=== PATIENT | female | born 1935 | race Asian ===

== ENCOUNTER → 2017-02-23 | Outpatient (CLI) | payer MEDICARE, OTHER ==
[~2017-02-23] VITALS: Ht 165.1 cm; Wt 57.0 kg
[~2017-02-23] MED LIST: ADV250 IH; APIX5TAB PO; BUME1TAB30 PO; CALC-879 PO; CITA10TA68 PO; DEXL30CA3 PO; DIGO125T PO; DOCU50LI12 PO; DSS100 PO; FURO40 PO; IPRA3AMP4 NEB; KDUR10 PO; LORA0.5T2 PO; LOSA50TA37 PO; METO50 PO; METO75TA PO; OS500 PO; SIMV-259 PO; TIOT185 IH; TRAM50TA4 PO; TRAV5DRO; TRAZ-144 PO
[2017-02-23 13:56] VITALS: BP 137/80
== END | disposition home or self-care (01) ==
LOC: SRCNTR 13:43
PROVIDERS: ATTEND Internal Medicine Clinical Cardiac Electrophysiology
DX: J44.9 Chronic obstructive pulmonary disease, unspecified (principal); K81.1 Chronic cholecystitis; I48.91 Unspecified atrial fibrillation; I11.0 Hypertensive heart disease with heart failure; I50.22 Chronic systolic (congestive) heart failure; Z95.810 Presence of automatic (implantable) cardiac defibrillator
CPT/HCPCS: G0463

== ENCOUNTER 2017-02-26 11:16 | Observation (INO) | payer MEDICARE, OTHER ==
[2017-02-26] VITALS (14 sets, daily range): BP systolic 150–176; BP diastolic 92–116
[~2017-02-26 11:16] MED LIST changes: +0.9% SODIUM CHLORIDE 10 ML VIAL IVP ONE; -BUME1TAB30 PO; -CALC-879 PO; -CITA10TA68 PO; -DEXL30CA3 PO; +EPHEDrine SULFATE 50 MG/ML VIAL IM ONE; -FURO40 PO; -IPRA3AMP4 NEB; -KDUR10 PO; +KETAMINE HCL 50 MG/ML 10 ML VIAL IVP ONE; +LIDOCAINE HCL/PF 2% 5 ML VIAL IM ONE; -LORA0.5T2 PO; -METO75TA PO; +MIDAZOLAM HCL 2 MG/2 ML VIAL IVP ONE; -OS500 PO; +PHENYLEPHRINE HCL 10 MG/ML VIAL IVP ONE; +PROPOFOL 1% 20 ML VIAL IVP ONE; -TIOT185 IH; -TRAM50TA4 PO; -TRAV5DRO
[2017-02-26] MEDS ORDERED: SODIUM CHLORIDE 0.9% 1,000 ML IV ONE ×3 (11:30→14:33)
[2017-02-26 12:12] LABS: BASOPHILS # (AUTO) 0.02 K/uL (0.00-0.20); BASOPHILS % (AUTO) 0.2 % (0.0-2.0); EOSINOPHILS # (AUTO) 0.12 K/uL (0.00-0.70); EOSINOPHILS % (AUTO) 1.48 % (1.0-6.0); HEMOGLOBIN 13.4 g/dL (12.0-16.0); LYMPHOCYTES # (AUTO) 1.3 K/uL (1.0-4.8); LYMPHOCYTES % (AUTO) 15.9 % (22.0-44.0); MEAN CORPUSCULAR HEMOGLOBIN 32.9 pg (26.0-34.0); MEAN CORPUSCULAR HGB CONC 32.6 G/dL (31.0-37.0); MEAN CORPUSCULAR VOLUME 101 fL (80-100); MONOCYTES # (AUTO) 0.9 K/uL (0.1-1.0); MONOCYTES % (AUTO) 10.8 % (2.0-9.0); NEUTROPHILS # (AUTO) 5.9 K/uL (1.8-7.7); NEUTROPHILS % (AUTO) 71.7 % (40.0-70.0); PLATELET COUNT (AUTO) 203 K/uL (150-450); RED BLOOD CELL COUNT(AUTO) 4.07 MIL/uL (4.00-5.20); RED CELL DISTRIBUTION WIDTH 14.5 % (11.5-14.5); WHITE BLOOD COUNT (AUTO) 8.3 K/uL (4.5-11.0)
[2017-02-26 12:24] LABS: CALCIUM, TOTAL 8.8 mg/dL (8.8-10.5); CREATININE 0.97 mg/dL (0.60-1.30); MAGNESIUM 2.1 mg/dL (1.80-2.40); POTASSIUM 4.7 mmol/L (3.5-5.1)
[2017-02-26 12:25] LABS: RBC MORPHOLOGY COMMENT ABNORMAL RBC MORPH
[2017-02-26 12:33] LABS: PROTHROMBIN TIME 10.5 SEC (9.4-11.6)
[2017-02-26] MEDS ORDERED: SODIUM CHLORIDE 0.9% 500 ML IV ONE (13:08)
[2017-02-26] MEDS ORDERED: IOHEXOL 300 MG/ML 50 ML VIAL ONE (14:40)
[2017-02-26] MEDS ORDERED: LIDOCAINE HCL/PF 1% 30 ML VIAL ONE ×2 (14:40→15:47)
[2017-02-26] MEDS ORDERED: SODIUM BICARBONATE 50 MEQ/50 ML VIAL ONE (14:40)
[2017-02-26] MEDS ORDERED: LIDOCAINE 1% 30 ML/SOD BICARB 8.4% 4 ML SQ ONE (16:15)
[2017-02-26] MEDS ORDERED: BUPIVACAINE LIPOSOME/PF 1.3%-13.3MG/ML SUSPENSION 20 ML VIAL INJ ONE (16:15)
[2017-02-26] MEDS ORDERED: BUPIVACAINE HCL/PF 0.25% 30 ML VIAL SQ ONE (16:15)
[2017-02-26] MEDS ORDERED: BUPIVACAINE LIPOSOME/PF 1.3%-13.3MG/ML SUSPENSION 10 ML VIAL INJ ONE (16:30)
[2017-02-26] MEDS ORDERED: TraZODone HCL 50 MG TABLET PO PRN (17:00)
[2017-02-26] MEDS ORDERED: 0.9% SODIUM CHLORIDE 10 ML SYRINGE IVP PRN (17:00)
[2017-02-26] MEDS ORDERED: ONDANSETRON HCL 4 MG/2 ML VIAL IVP PRN (17:00)
[2017-02-26] MEDS ORDERED: ACETAMINOPHEN 325 MG TABLET PO PRN (17:00)
[2017-02-26] MEDS ORDERED: METOPROLOL TARTRATE 25 MG TABLET PO ONE (20:00)
[2017-02-26] MEDS: HYDROCODONE/ACETAMINOPHEN 5-325 MG TABLET PO PRN (20:09)
[2017-02-26] MEDS ORDERED: SODIUM CHLORIDE 0.9% 250 ML IV ONE (21:51)
[2017-02-26] MEDS: CeFAZolin 1 GM/DEXTROSE 50 ML IV SCH (21:52)
[2017-02-27] VITALS: BP 150/92
[2017-02-27] MEDS: CeFAZolin 1 GM/DEXTROSE 50 ML IV SCH ×2 (03:11→09:10)
[2017-02-27 04:37] VITALS: BP 141/78
[2017-02-27 07:13] VITALS: BP 149/110
[2017-02-27] MEDS ORDERED: DIGOXIN 125 MCG TABLET PO SCH (09:00)
[2017-02-27] MEDS ORDERED: SIMVASTATIN 10 MG TABLET PO SCH (09:00)
[2017-02-27] MEDS ORDERED: LOSARTAN POTASSIUM 50 MG TABLET PO SCH (09:00)
[2017-02-27] MEDS ORDERED: METOPROLOL TARTRATE 50 MG TABLET PO SCH (09:00)
[2017-02-27] MEDS: HYDROCODONE/ACETAMINOPHEN 5-325 MG TABLET PO PRN (09:22)
[2017-02-27 11:24] VITALS: BP 113/62
[2017-02-27 15:49] VITALS: BP 104/72
[2017-02-27] MEDS ORDERED: CEPH250 PO (17:29)
[2017-03-02] MEDS ORDERED: TRAM50TA4 PO (10:38)
[2017-03-02] MEDS ORDERED: POTA99TA15 PO (10:38)
[2017-03-02] MEDS ORDERED: TIOT185 IH (10:38)
[2017-03-02] MEDS ORDERED: KDUR20 PO (10:41)
== END 2017-02-27 18:27 | disposition home or self-care (01) ==
LOC: 5N 11:16 → EDSTATUS 13:30 → 5S 17:05
PROVIDERS: ADMIT Internal Medicine Clinical Cardiac Electrophysiology; ATTEND Internal Medicine Clinical Cardiac Electrophysiology
DX: I11.0 Hypertensive heart disease with heart failure (principal); I50.22 Chronic systolic (congestive) heart failure; I48.2 Chronic atrial fibrillation; I42.9 Cardiomyopathy, unspecified; Z95.0 Presence of cardiac pacemaker
CPT/HCPCS: 33214; 36415; 71010; 71020; 76000; 80048; 83735; 85025; 85610; 85730; 87081; 88300; 93005; 96365; 96375; C1721; C1892; C1899; G0378 ×2; J0690; J2250; J2370; J2704; J3490 ×5; J7030; J7040; J7050; Q9967; C9290

== ENCOUNTER → 2017-03-02 | Outpatient (CLI) | payer MEDICARE, OTHER ==
[~2017-03-02] MED LIST changes: -0.9% SODIUM CHLORIDE 10 ML VIAL IVP ONE; +CEPH250 PO; -DOCU50LI12 PO; -EPHEDrine SULFATE 50 MG/ML VIAL IM ONE; +KDUR20 PO; -KETAMINE HCL 50 MG/ML 10 ML VIAL IVP ONE; -LIDOCAINE HCL/PF 2% 5 ML VIAL IM ONE; -MIDAZOLAM HCL 2 MG/2 ML VIAL IVP ONE; -PHENYLEPHRINE HCL 10 MG/ML VIAL IVP ONE; +POTA99TA15 PO; -PROPOFOL 1% 20 ML VIAL IVP ONE; +TIOT185 IH; +TRAM50TA4 PO
[2017-03-02 10:27] VITALS: BP 142/85
== END | disposition home or self-care (01) ==
LOC: SRCNTR 10:17
PROVIDERS: ATTEND Internal Medicine Clinical Cardiac Electrophysiology
DX: Z45.02 Encounter for adjustment and management of automatic implantable cardiac defibrillator (principal); I11.0 Hypertensive heart disease with heart failure; I50.9 Heart failure, unspecified; E78.5 Hyperlipidemia, unspecified; J44.9 Chronic obstructive pulmonary disease, unspecified; E78.00 Pure hypercholesterolemia, unspecified; J18.9 Pneumonia, unspecified organism
CPT/HCPCS: G0463

== ENCOUNTER 2017-03-03 12:32 | Emergency (ER) | payer MEDICARE, OTHER ==
[~2017-03-03] VITALS: Ht 165.1 cm; Wt 57.0 kg
[~2017-03-03 12:32] MED LIST changes: -POTA99TA15 PO
[2017-03-03 14:49] LABS: BASOPHILS % (AUTO) 0.4 % (0.0-2.0); EOSINOPHILS % (AUTO) 0 % (1.0-6.0); HEMATOCRIT 35.6 % (36-46); HEMOGLOBIN 12.3 g/dL (12.0-16.0); LYMPHOCYTES # (AUTO) 0.8 K/uL (1.0-4.8); LYMPHOCYTES % (AUTO) 5.7 % (22.0-44.0); MEAN CORPUSCULAR HEMOGLOBIN 33.4 pg (26.0-34.0); MEAN CORPUSCULAR HGB CONC 34.6 G/dL (31.0-37.0); MEAN CORPUSCULAR VOLUME 96 fL (80-100); MONOCYTES # (AUTO) 1.1 K/uL (0.1-1.0); MONOCYTES % (AUTO) 7.7 % (2.0-9.0); NEUTROPHILS # (AUTO) 12.3 K/uL (1.8-7.7); PLATELET COUNT (AUTO) 202 K/uL (150-450); RED BLOOD CELL COUNT(AUTO) 3.69 MIL/uL (4.00-5.20); RED CELL DISTRIBUTION WIDTH 14.4 % (11.5-14.5); WHITE BLOOD COUNT (AUTO) 14.2 K/uL (4.5-11.0)
[2017-03-03 14:55] LABS: POTASSIUM 4.7 mmol/L (3.5-5.1)
[2017-03-03 14:56] LABS: ALBUMIN 3.2 g/dL (3.4-5.0); BILIRUBIN,TOTAL 1.2 mg/dL (0.1-1.0); CALCIUM, TOTAL 8.7 mg/dL (8.8-10.5); CREATININE 1.05 mg/dL (0.60-1.30); TOTAL PROTEIN, SERUM 8.1 g/dL (6.4-8.2)
[2017-03-03 15:00] LABS: NEUTROPHILS % (AUTO) 86.2 % (40.0-70.0)
[2017-03-03 15:03] LABS: INR 1.1 (0.9-1.1); PROTHROMBIN TIME 11.5 SEC (9.4-11.6)
[2017-03-03] MEDS ORDERED: SODIUM CHLORIDE 0.9% 500 ML IV ONE (17:45)
[2017-03-03 17:50] VITALS: BP 132/95
[2017-03-03 17:58] LABS: APPEARANCE,URINE CLOUDY (CLEAR); GLUCOSE, URINE (UA) 100 mg/dL (NEGATIVE); KETONES,URINE NEGATIVE (NEGATIVE); OCCULT BLOOD,URINE LARGE (NEGATIVE); PH,URINE 5.5 (5.0-8.0); PROTEIN,URINE POS 1+ (NEGATIVE)
[2017-03-03 18:05] LABS: ADD UA MICROSCOPIC YES; LEUKOCYTE ESTERASE ,URINE MODERATE (NEGATIVE); RBC,URINE 51-100 /HPF (0-2); SQUAMOUS EPITHELIAL CELL,UR Few /LPF (None Seen); WBC,URINE 26-50 /HPF (0-5)
[2017-03-03] MEDS ORDERED: VANCOMYCIN HCL 1 GM/D5% WATER 200 ML IV ONE (18:30)
[2017-03-03] MEDS ORDERED: LEVOFLOXACIN 500 MG/D5% WATER 100 ML IV ONE (18:30)
== END 2017-03-03 21:27 | disposition home or self-care (01) ==
LOC: EMS 12:37
DX: N39.0 Urinary tract infection, site not specified (principal); E78.00 Pure hypercholesterolemia, unspecified; I11.0 Hypertensive heart disease with heart failure; I50.9 Heart failure, unspecified; J44.9 Chronic obstructive pulmonary disease, unspecified
CPT/HCPCS: 36415; 71010; 80053; 81001; 82271; 83690; 85025; 85610; 85730; 86850; 86900; 86901; 87077; 87086; 87186; 93005; 96361; 96374; 96375; 99285; J1956; J3370; J7040

== ENCOUNTER → 2017-03-09 | Outpatient (CLI) | payer MEDICARE, OTHER ==
[2017-03-09 11:34] VITALS: BP 114/57
== END | disposition home or self-care (01) ==
LOC: SRCNTR 11:04
PROVIDERS: ATTEND Internal Medicine Clinical Cardiac Electrophysiology
DX: Z45.02 Encounter for adjustment and management of automatic implantable cardiac defibrillator (principal); I11.0 Hypertensive heart disease with heart failure; I50.9 Heart failure, unspecified; E78.5 Hyperlipidemia, unspecified
CPT/HCPCS: G0463

== ENCOUNTER → 2017-03-30 | Outpatient (CLI) | payer MEDICARE, OTHER ==
[~2017-03-30] VITALS: Ht 152.4 cm; Wt 51.0 kg
[2017-03-30 10:27] VITALS: BP 102/61
== END | disposition home or self-care (01) ==
LOC: SRCNTR 10:21
PROVIDERS: ATTEND Internal Medicine Clinical Cardiac Electrophysiology
DX: Z45.02 Encounter for adjustment and management of automatic implantable cardiac defibrillator (principal); I11.0 Hypertensive heart disease with heart failure; I50.9 Heart failure, unspecified; E78.5 Hyperlipidemia, unspecified; J44.9 Chronic obstructive pulmonary disease, unspecified; E78.00 Pure hypercholesterolemia, unspecified; R42 Dizziness and giddiness; Z79.01 Long term (current) use of anticoagulants
CPT/HCPCS: G0463

== ENCOUNTER → 2017-06-01 | Outpatient (CLI) | payer MEDICARE, OTHER ==
[~2017-06-01] VITALS: Ht 157.5 cm; Wt 49.0 kg
[2017-06-01 09:55] VITALS: BP 122/71
== END | disposition home or self-care (01) ==
LOC: SRCNTR 09:50
PROVIDERS: ATTEND Internal Medicine Clinical Cardiac Electrophysiology
DX: Z45.018 Encounter for adjustment and management of other part of cardiac pacemaker (principal); I48.91 Unspecified atrial fibrillation; I11.0 Hypertensive heart disease with heart failure; I50.9 Heart failure, unspecified; J44.9 Chronic obstructive pulmonary disease, unspecified; E78.5 Hyperlipidemia, unspecified; Z79.01 Long term (current) use of anticoagulants
CPT/HCPCS: G0463

== ENCOUNTER → 2017-09-17 | Outpatient (CLI) | payer MEDICARE, OTHER ==
[2017-09-17 17:22] LABS: CALCIUM, TOTAL 9.3 mg/dL (8.8-10.5); CREATININE 1.09 mg/dL (0.60-1.30); PHOSPHORUS 4.6 mg/dL (2.5-4.9); POTASSIUM 4.3 mmol/L (3.5-5.1)
[2017-09-17 17:39] LABS: FOLATE SERUM 14.6 ng/mL (5.4-)
== END | disposition home or self-care (01) ==
LOC: LABPV 15:11
PROVIDERS: ATTEND Internal Medicine Pulmonary Disease
DX: G47.61 Periodic limb movement disorder (principal); G25.81 Restless legs syndrome; I10 Essential (primary) hypertension; I25.10 Atherosclerotic heart disease of native coronary artery without angina pectoris; J44.9 Chronic obstructive pulmonary disease, unspecified; R79.89 Other specified abnormal findings of blood chemistry
CPT/HCPCS: 82607; 82728; 82746; 83735; 84100

== ENCOUNTER → 2018-03-21 | Outpatient (CLI) | payer MEDICARE, OTHER ==
[~2018-03-21] MED LIST changes: +DIGO-44 PO; -DIGO125T PO; -TRAZ-144 PO; +TRAZ-219 PO
== END | disposition home or self-care (01) ==
LOC: RADPV 10:24
PROVIDERS: ATTEND Internal Medicine Cardiovascular Disease
DX: M25.831 Other specified joint disorders, right wrist (principal)